=== PATIENT | female | born 1985 | race Caucasian/White ===

== ENCOUNTER → 2016-12-30 | Outpatient (CLI) | payer BC ==
[~2016-12-30] MED LIST: DULO20CA50 PO; IOHEXOL 240 MG/ML 50ML VIAL. ONE; IOHEXOL 300 MG/ML 75 ML VIAL. IV ONE; ZOLP5TAB PO
--- NOTE | 2016-12-30 12:51 | RAD ---
CT abdomen/pelvis with contrast 12/30/2016 at 1222 hours Indication: Generalized abdominal pain with pressure Comparison: None available Technique: Multiple axial CT images of the abdomen and pelvis were obtained after intravenous administration of 75 mL's of Omnipaque 300. Oral contrast was administered. Coronal and sagittal reformats are provided. Findings: Lung bases are clear. Heart size is within normal limits. Liver, spleen, bilateral adrenal glands, and pancreas are within normal limits. Gallbladder is surgically absent. Kidneys enhance symmetrically. No hydronephrosis or renal calculi. No suspicious renal mass. Abdominal aorta is normal in course and caliber. No enlarged abdominal or pelvic lymph nodes. There is no free intraperitoneal air. No free fluid in the abdomen or pelvis. Small and large bowel are normal in caliber. Nondilated appendix is visualized. No evidence for bowel obstruction. No pericolonic inflammatory changes. Uterus and adnexa appear within normal limits. Urinary bladder is normal in appearance. No suspicious osseous abnormalities identified. Impression: No significant abnormality is identified within the abdomen or pelvis. PQRS Compliance Statement: One or more of the following individualized dose reduction techniques were utilized for this examination: 1. Automated exposure control 2. Adjustment of the mA and/or kV according to patient size 3. Use of iterative reconstruction technique
== END | disposition home or self-care (01) ==
LOC: CT 11:12
PROVIDERS: ATTEND Nurse Practitioner Family
DX: R10.84 Generalized abdominal pain (principal); Z90.49 Acquired absence of other specified parts of digestive tract
CPT/HCPCS: 74177; Q9966; Q9967